=== PATIENT | male | born 1940 | race Caucasian/White ===

== ENCOUNTER 2019-09-08 07:19 | Day surgery (SDC) | payer MEDICARE, OTHER ==
[2019-09-08] VITALS (9 sets, daily range): BP systolic 21–150; BP diastolic 61–87
[~2019-09-08] VITALS: Ht 175.3 cm; Wt 90.4 kg
[~2019-09-08 07:19] MED LIST: ATOR40TA PO; PANT-47 PO
[2019-09-08] MEDS ORDERED: diphenhydrAMINE 25mg capsule PO PRN (07:45)
[2019-09-08] MEDS ORDERED: normal saline 1,000 ML IV SCH (07:45)
[2019-09-08] MEDS ORDERED: RANO500T5 PO (07:59)
[2019-09-08] MEDS ORDERED: MULT-1085 PO (07:59)
[2019-09-08] MEDS ORDERED: CLOP75TA35 PO (07:59)
[2019-09-08] MEDS ORDERED: ASPI81TA52 PO (07:59)
[2019-09-08] MEDS ORDERED: FURO20TA4 PO (07:59)
[2019-09-08] MEDS ORDERED: ATOR-2 PO (07:59)
[2019-09-08] MEDS ORDERED: CARV3.122 PO (07:59)
[2019-09-08 08:26] LABS: BASOPHILS % (AUTO) 0.5 % (0-1); EOSINOPHILS # (AUTO) 0.3 X10'3 (0-0.9); EOSINOPHILS % (AUTO) 2.9 % (0-6); HEMATOCRIT 42.8 % (42.0-52.0); HEMOGLOBIN 14.2 g/dl (14.0-17.9); LYMPHOCYTES % (AUTO) 22.5 % (21-51); MEAN CORPUSCULAR HEMOGLOBIN 32.1 PG (27.0-31.0); MEAN CORPUSCULAR HGB CONC 33.2 g/dL (33.0-36.5); MEAN CORPUSCULAR VOLUME 96.7 FL (78-98); MEAN PLATELET VOLUME 11.2 FL (7.4-10.4); MONOCYTES # (AUTO) 0.7 X10'3 (0-0.9); MONOCYTES % (AUTO) 8.3 % (2-12); NEUTROPHILS # (AUTO) 5.8 X10'3 (1.8-7.7); NEUTROPHILS % (AUTO) 65.8 % (42-75); PLATELET COUNT 190 X10'3 (140-440); RED BLOOD COUNT 4.42 X10'6 (4.70-6.10); RED CELL DISTRIBUTION WIDTH 14.3 % (11.5-14.5); WHITE BLOOD COUNT 8.9 X10'3 (4.5-11.0)
[2019-09-08 08:46] LABS: ALBUMIN 3.8 G/DL (3.4-5.0); ANION GAP 11 (8-16); BLOOD UREA NITROGEN 28 MG/DL (7-18); BUN/CREATININE RATIO 19.6 (5.4-32.0); CALCIUM 9.1 MG/DL (8.5-10.1); CHLORIDE 107 MMOL/L (99-107); CREATININE 1.43 MG/DL (0.60-1.10); GLUCOSE 107 MG/DL (70-104); POTASSIUM 4.2 MMOL/L (3.5-5.1); SODIUM 142 MMOL/L (135-145); TOTAL CARBON DIOXIDE 24.5 MMOL/L (24-32); eGFR 48 ML/MIN
[2019-09-08] MEDS ORDERED: fentaNYL/PF 50MCG/1 ML 2ML syringe ONE (08:56)
[2019-09-08] MEDS ORDERED: iohexol 350 MG/ML 50ML vial IV ONE (08:56)
[2019-09-08] MEDS ORDERED: LIDOcaine 1% (10mg/ml)w/preservative injection 20ml MDV ONE (08:56)
[2019-09-08] MEDS ORDERED: heparin 1,000unit/ml 10ml vial 10 ML ONE (08:56)
[2019-09-08] MEDS ORDERED: iohexol 350MG/ML 100ml bottle IV ONE (08:56)
[2019-09-08] MEDS ORDERED: midazolam 2 mg/2 ml injection ONE ×2 (08:56→09:28)
[2019-09-08 10:17] LABS: LARGE PLATELETS FEW; PLATELET ESTIMATE NORMAL
[2019-09-08] MEDS ORDERED: ondansetron/PF 4mg/2ml inj IV PRN (10:25)
[2019-09-08] MEDS ORDERED: proCHLORperazine 10 MG/2 ml inj IV PRN (10:25)
[2019-09-08] MEDS ORDERED: HYDROcodone/acetaminophen 10/325mg tab PO PRN (10:25)
[2019-09-08] MEDS ORDERED: HYDROcodone/acetaminophen 5mg/325mg tablet PO PRN (10:25)
[2019-09-08] MEDS ORDERED: furosemide 40mg/4ml inj IV ONE (12:00)
== END 2019-09-08 13:42 | disposition home or self-care (01) ==
LOC: SSTAY O 07:19
PROVIDERS: ATTEND Internal Medicine Cardiovascular Disease
DX: I25.5 Ischemic cardiomyopathy (principal); I25.118 Atherosclerotic heart disease of native coronary artery with other forms of angina pectoris; I44.7 Left bundle-branch block, unspecified; I34.0 Nonrheumatic mitral (valve) insufficiency; I25.82 Chronic total occlusion of coronary artery; E78.5 Hyperlipidemia, unspecified; I47.2 Ventricular tachycardia; I48.0 Paroxysmal atrial fibrillation; I10 Essential (primary) hypertension; N40.0 Benign prostatic hyperplasia without lower urinary tract symptoms; F17.290 Nicotine dependence, other tobacco product, uncomplicated; Z95.1 Presence of aortocoronary bypass graft; Z87.19 Personal history of other diseases of the digestive system; Z90.81 Acquired absence of spleen; Z90.5 Acquired absence of kidney; Z79.899 Other long term (current) drug therapy; Z82.49 Family history of ischemic heart disease and other diseases of the circulatory system
CPT/HCPCS: 36415; 80048; 83735; 85025; 85610; 93005; 93459; 99152; 99153; C1760; C1769; C1894; J1644; J1940; J2001; J2250; J3010; J7030; Q0163; Q9967; A6258

== ENCOUNTER 2019-09-26 07:22 | Day surgery (SDC) | payer MEDICARE, OTHER ==
[2019-09-26] VITALS (12 sets, daily range): BP systolic 125–163; BP diastolic 70–93
[~2019-09-26] VITALS: Ht 175.3 cm; Wt 90.9 kg
[~2019-09-26 07:22] MED LIST changes: +ASPI81TA52 PO; +ATOR-2 PO; +CARV3.122 PO; +CLOP75TA35 PO; +FURO20TA4 PO; +MULT-1085 PO; +RANO500T5 PO
[2019-09-26] MEDS ORDERED: LOSA50TA3 PO (07:42)
[2019-09-26] MEDS ORDERED: METO50TA16 PO (07:42)
[2019-09-26] MEDS ORDERED: normal saline 1000ml 1,000 ML IV ONE (07:45)
[2019-09-26] MEDS ORDERED: vancomycin 1,000mg inj ONE (08:58)
[2019-09-26] MEDS ORDERED: proCHLORperazine 10 MG/2 ml inj ONE (08:58)
[2019-09-26] MEDS ORDERED: ceFAZolin 1000mg inj ONE (08:58)
[2019-09-26] MEDS ORDERED: fentaNYL/PF 50MCG/1 ML 2ML syringe ONE ×4 (08:58→10:38)
[2019-09-26] MEDS ORDERED: midazolam 2 mg/2 ml injection ONE ×4 (08:58→10:22)
[2019-09-26] MEDS ORDERED: LIDOcaine 1% W/epiNEPHrine 1:100,000 20ml vial ONE (08:59)
[2019-09-26 09:02] LABS: BASOPHILS # (AUTO) 0.1 X10'3 (0-0.2); BASOPHILS % (AUTO) 0.7 % (0-1); EOSINOPHILS # (AUTO) 0.4 X10'3 (0-0.9); EOSINOPHILS % (AUTO) 3.8 % (0-6); HEMATOCRIT 43.7 % (42.0-52.0); HEMOGLOBIN 14.5 g/dl (14.0-17.9); LYMPHOCYTES # (AUTO) 2.5 X10'3 (1.1-4.8); LYMPHOCYTES % (AUTO) 26.4 % (21-51); MEAN CORPUSCULAR HEMOGLOBIN 32.4 PG (27.0-31.0); MEAN CORPUSCULAR HGB CONC 33.1 g/dL (33.0-36.5); MEAN PLATELET VOLUME 10.6 FL (7.4-10.4); MONOCYTES # (AUTO) 0.8 X10'3 (0-0.9); NEUTROPHILS # (AUTO) 5.7 X10'3 (1.8-7.7); NEUTROPHILS % (AUTO) 61.1 % (42-75); PLATELET COUNT 165 X10'3 (140-440); RED BLOOD COUNT 4.46 X10'6 (4.70-6.10); RED CELL DISTRIBUTION WIDTH 13.8 % (11.5-14.5); WHITE BLOOD COUNT 9.4 X10'3 (4.5-11.0)
[2019-09-26] MEDS ORDERED: iohexol 350 MG/ML 50ML vial IV ONE (09:10)
[2019-09-26 09:11] LABS: ALBUMIN 3.6 G/DL (3.4-5.0); ANION GAP 6 (8-16); BLOOD UREA NITROGEN 26 MG/DL (7-18); BUN/CREATININE RATIO 15.9 (5.4-32.0); CHLORIDE 104 MMOL/L (99-107); CREATININE 1.64 MG/DL (0.60-1.10); GLUCOSE 97 MG/DL (70-104); MAGNESIUM 1.9 MG/DL (1.5-2.4); POTASSIUM 4.5 MMOL/L (3.5-5.1); SODIUM 138 MMOL/L (135-145); eGFR 41 ML/MIN
[2019-09-26 09:34] LABS: LARGE PLATELETS FEW; PLATELET ESTIMATE NORMAL
[2019-09-26] MEDS ORDERED: LIDOcaine 2% 10ml TOPICAL JELLY (Urojet) ONE (09:43)
== END 2019-09-26 14:07 | disposition home or self-care (01) ==
LOC: SSTAY O 07:22
PROVIDERS: ATTEND Internal Medicine Cardiovascular Disease
DX: I25.5 Ischemic cardiomyopathy (principal); I44.7 Left bundle-branch block, unspecified; I10 Essential (primary) hypertension; I25.118 Atherosclerotic heart disease of native coronary artery with other forms of angina pectoris; E78.5 Hyperlipidemia, unspecified; I47.2 Ventricular tachycardia; I48.0 Paroxysmal atrial fibrillation; N40.0 Benign prostatic hyperplasia without lower urinary tract symptoms; I08.3 Combined rheumatic disorders of mitral, aortic and tricuspid valves; F17.211 Nicotine dependence, cigarettes, in remission; Z87.19 Personal history of other diseases of the digestive system; Z95.1 Presence of aortocoronary bypass graft; Z90.81 Acquired absence of spleen; Z90.5 Acquired absence of kidney; Z79.899 Other long term (current) drug therapy; Z79.01 Long term (current) use of anticoagulants; Z82.49 Family history of ischemic heart disease and other diseases of the circulatory system
CPT/HCPCS: 33225; 33249; 36415; 71045; 80048; 83735; 85025; 85610; 93005; 99152; 99153; C1751; C1769; C1882; C1887; C1894; C1895; C1900; J0690; J0780; J2250; J3010; J3370; Q9967; A4565; A6258

== ENCOUNTER 2022-10-09 07:49 | Day surgery (SDC) | payer MEDICARE, OTHER ==
[2022-10-09] VITALS (11 sets, daily range): BP systolic 137–180; BP diastolic 65–100; PULSE 59–69; RESP 12–20; TEMP 98; O2SAT 92–98
[~2022-10-09] VITALS: Ht 175.3 cm; Wt 94.0 kg
[~2022-10-09 07:49] MED LIST changes: -ATOR40TA PO; +CLOP75TA34 PO; -CLOP75TA35 PO; +LOSA-416 PO; +METO50TA16 PO; -PANT-47 PO; -RANO500T5 PO; +RANO500T6 PO
[2022-10-09] MEDS ORDERED: diphenhydrAMINE 25mg capsule PO PRN (08:15)
[2022-10-09] MEDS ORDERED: normal saline 1,000 ML IV SCH (08:15)
[2022-10-09] MEDS ORDERED: METO-395 PO (08:39)
[2022-10-09] MEDS ORDERED: AMIO200T27 PO (08:39)
[2022-10-09] MEDS ORDERED: PANT-47 PO (08:39)
[2022-10-09] MEDS ORDERED: APIX2.5T PO (08:39)
[2022-10-09] MEDS ORDERED: ROSU40TA PO (08:39)
[2022-10-09 09:12] LABS: BASOPHILS # (AUTO) 0.1 X10'3 (0-0.2); BASOPHILS % (AUTO) 0.5 % (0-1); EOSINOPHILS # (AUTO) 0.2 X10'3 (0-0.9); EOSINOPHILS % (AUTO) 1.8 % (0-6); HEMATOCRIT 42.6 % (42.0-52.0); HEMOGLOBIN 14.2 g/dl (14.0-17.9); LYMPHOCYTES % (AUTO) 20.3 % (21-51); MEAN CORPUSCULAR HEMOGLOBIN 32.2 PG (27.0-31.0); MEAN CORPUSCULAR HGB CONC 33.4 g/dL (33.0-36.5); MEAN CORPUSCULAR VOLUME 96.2 FL (78-98); MEAN PLATELET VOLUME 10.1 FL (7.4-10.4); MONOCYTES # (AUTO) 0.9 X10'3 (0-0.9); MONOCYTES % (AUTO) 9.3 % (2-12); NEUTROPHILS # (AUTO) 6.6 X10'3 (1.8-7.7); NEUTROPHILS % (AUTO) 68.1 % (42-75); PLATELET COUNT 185 X10'3 (140-440); RED BLOOD COUNT 4.42 X10'6 (4.70-6.10); RED CELL DISTRIBUTION WIDTH 14.3 % (11.5-14.5); WHITE BLOOD COUNT 9.6 X10'3 (4.5-11.0)
[2022-10-09 09:23] LABS: ALBUMIN 3.5 G/DL (3.4-5.0); ANION GAP 10 (8-16); BLOOD UREA NITROGEN 26 MG/DL (7-18); BUN/CREATININE RATIO 16.6 (10.0-20.0); CALCIUM 9.2 MG/DL (8.5-10.1); CHLORIDE 104 MMOL/L (99-107); CREATININE 1.57 MG/DL (0.60-1.10); GLUCOSE 107 MG/DL (70-104); SODIUM 142 MMOL/L (135-145); eGFR 43 ML/MIN
[2022-10-09] MEDS ORDERED: midazolam 1 mg/ML 2ml injection ONE ×2 (10:15→10:42)
[2022-10-09] MEDS ORDERED: LIDOcaine 1% 30ml preserv. free vial ONE (10:15)
[2022-10-09] MEDS ORDERED: iohexol 350MG/ML 100ml bottle IV ONE (10:16)
[2022-10-09] MEDS ORDERED: fentaNYL/PF 50MCG/1 ML 2ML syringe ONE (10:16)
[2022-10-09] MEDS ORDERED: iohexol 350 MG/ML 50ML vial IV ONE ×2 (10:16→10:58)
[2022-10-09] MEDS ORDERED: sodium bicarbonate 1meq/ml syr 150 ML in dextrose 5%-water 1,000 ML IV ONE (10:25)
[2022-10-09] MEDS ORDERED: HYDROcodone/acetaminophen 10/325mg tab PO PRN (11:50)
[2022-10-09] MEDS ORDERED: HYDROcodone/acetaminophen 5mg/325mg tablet PO PRN (11:50)
[2022-10-09] MEDS ORDERED: proCHLORperazine 10 MG/2 ml inj IV PRN (11:50)
[2022-10-09] MEDS ORDERED: OXAZEpam 15mg capsule PO PRN (11:50)
[2022-10-09] MEDS ORDERED: normal saline 1000ml 1,000 ML IV SCH (11:50)
[2022-10-09] MEDS ORDERED: ondansetron/PF 4mg/2ml inj IV PRN (11:50)
== END 2022-10-09 15:00 | disposition home or self-care (01) ==
LOC: SSTAY O 07:49
PROVIDERS: ATTEND Internal Medicine Cardiovascular Disease
DX: I25.718 Atherosclerosis of autologous vein coronary artery bypass graft(s) with other forms of angina pectoris (principal); I25.5 Ischemic cardiomyopathy; I34.0 Nonrheumatic mitral (valve) insufficiency; I48.0 Paroxysmal atrial fibrillation; I44.7 Left bundle-branch block, unspecified; E78.5 Hyperlipidemia, unspecified; I10 Essential (primary) hypertension; I73.9 Peripheral vascular disease, unspecified; I42.9 Cardiomyopathy, unspecified; I25.2 Old myocardial infarction; F17.211 Nicotine dependence, cigarettes, in remission; N40.0 Benign prostatic hyperplasia without lower urinary tract symptoms; Z95.810 Presence of automatic (implantable) cardiac defibrillator; Z79.899 Other long term (current) drug therapy; Z79.01 Long term (current) use of anticoagulants; Z90.5 Acquired absence of kidney; Z90.81 Acquired absence of spleen; Z82.49 Family history of ischemic heart disease and other diseases of the circulatory system
CPT/HCPCS: 36415; 80048; 83735; 85025; 85610; 93005; 93459; 99152; 99153; C1769; J1644; J2250; J3010; J3490; J7030; Q0163; Q9967; A6258; C1725; C1760; C1894